=== PATIENT | male | born 1940 | race Caucasian/White ===

== ENCOUNTER → 2023-05-07 12:55 | Outpatient (REF) | payer OTHER, SELFPAY | LOC: DHCBC HW 12:55 | PROVIDERS: ATTENDING PHYSICIAN Internal Medicine; FAMILY PHYSICIAN Family Medicine | DX: I44.0 Atrioventricular block, first degree (principal); Q21.12 Patent foramen ovale; I49.1 Atrial premature depolarization; I49.3 Ventricular premature depolarization; I35.1 Nonrheumatic aortic (valve) insufficiency | CPT/HCPCS: 93306 ==